=== PATIENT | female | born 2005 | race Caucasian/White ===

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

== ENCOUNTER 2025-02-08 08:07 | Outpatient (CLI) | payer OTHER | END 2025-02-08 08:15 | disposition home or self-care (01) | LOC: RAD 08:07 | PROVIDERS: ATTEND Physical Medicine & Rehabilitation Pediatric Rehabilitation Medicine | DX: M54.50 Low back pain, unspecified (principal) ==